=== PATIENT | female | born 1980 | race Two or more races ===

== ENCOUNTER → 2016-11-13 | Outpatient (CLI) | payer BC ==
[~2016-11-13] MED LIST: ALPR0.254; LEVO50TA7 PO
[2016-11-13 08:29] LABS: Cholesterol 199 mg/dL (<200); HDL Cholesterol 52 mg/dL (40-59); LDL Cholesterol 127 mg/dL (<100); Triglycerides 198 mg/dL (<150)
== END | disposition home or self-care (01) ==
LOC: LAB 07:06
PROVIDERS: ATTEND Internal Medicine
DX: I10 Essential (primary) hypertension (principal)
CPT/HCPCS: 36415; 80061; 84443

== ENCOUNTER → 2017-01-07 | Outpatient (CLI) | payer BC | END | disposition home or self-care (01) | LOC: LAB 08:42 | PROVIDERS: ATTEND Internal Medicine | DX: Z00.00 Encounter for general adult medical examination without abnormal findings (principal) | CPT/HCPCS: 36415; 84443 ==

== ENCOUNTER → 2017-04-13 | Outpatient (CLI) | payer BC | END | disposition home or self-care (01) | LOC: LAB 11:09 | PROVIDERS: ATTEND Internal Medicine | DX: E03.9 Hypothyroidism, unspecified (principal); E78.5 Hyperlipidemia, unspecified; K21.9 Gastro-esophageal reflux disease without esophagitis; F34.1 Dysthymic disorder | CPT/HCPCS: 36415; 84443 ==

== ENCOUNTER → 2017-06-17 | Outpatient (CLI) | payer BC | END | disposition home or self-care (01) | LOC: LAB 06:42 | PROVIDERS: ATTEND Internal Medicine | DX: I10 Essential (primary) hypertension (principal) | CPT/HCPCS: 36415; 84443 ==

== ENCOUNTER → 2017-09-17 | Outpatient (CLI) | payer BC | END | disposition home or self-care (01) | LOC: LAB 07:50 | PROVIDERS: ATTEND Internal Medicine | DX: R94.6 Abnormal results of thyroid function studies (principal) | CPT/HCPCS: 36415; 84443 ==

== ENCOUNTER → 2018-03-07 | Outpatient (CLI) | payer BC | END | disposition home or self-care (01) | LOC: LAB 14:14 | PROVIDERS: ATTEND Internal Medicine | DX: E03.9 Hypothyroidism, unspecified (principal); I12.9 Hypertensive chronic kidney disease with stage 1 through stage 4 chronic kidney disease, or unspecified chronic kidney disease; E11.22 Type 2 diabetes mellitus with diabetic chronic kidney disease; N18.2 Chronic kidney disease, stage 2 (mild); E78.5 Hyperlipidemia, unspecified; F41.9 Anxiety disorder, unspecified | CPT/HCPCS: 36415; 84443 ==

== ENCOUNTER → 2018-06-28 | Outpatient (CLI) | payer BC ==
[2018-06-28 08:21] LABS: Basophils # (auto) 0 uL; Basophils % (auto) 0.8 % (0.0-2.0); Eosinophils # (auto) 0.1 uL; Eosinophils % (auto) 1.7 % (0.0-7.0); Hematocrit 39.4 % (36.0-46.0); Hemoglobin 13.3 g/dL (12.2-16.2); Lymphocytes % (auto) 19.3 % (10.0-50.0); Mean Corpuscular Hemoglobin 31.3 pg (28.0-32.0); Mean Corpuscular Hgb Conc. 33.8 g/dL (32.0-36.0); Mean Corpuscular Volume 92.8 fL (80.0-100.0); Monocytes # (auto) 0.3 uL; Neutrophils # (auto) 3.7 uL; Neutrophils % (auto) 72.2 % (37.0-80.0); Nucleated Red Blood Cells % 0.1 %; Platelet Count (auto) 214 10^3/uL (140-450); Red Blood Cells 4.24 10^6/uL (4.0-5.20); Red Cell Distribution Width 14.9 % (11.8-14.3); White Blood Cell 5.1 10^3/uL (4.4-10.8)
[2018-06-28 08:41] LABS: Potassium 4.3 mmol/L (3.5-5.1)
[2018-06-28 08:50] LABS: Albumin 3.8 g/dL (3.4-5.0); BUN/Creatinine Ratio 21.7; Bilirubin, Total 0.6 mg/dL (0.2-1.0); Calcium 9.2 mg/dL (8.5-10.1); Total Protein 7.8 g/dL (6.4-8.2)
== END | disposition home or self-care (01) ==
LOC: LAB 07:32
PROVIDERS: ATTEND Internal Medicine
DX: K21.9 Gastro-esophageal reflux disease without esophagitis (principal); E03.9 Hypothyroidism, unspecified; E66.9 Obesity, unspecified
CPT/HCPCS: 36415; 80053; 80061; 82043; 83036; 84443; 85025

== ENCOUNTER → 2018-10-13 | Outpatient (CLI) | payer BC | END | disposition home or self-care (01) | LOC: LAB 08:25 | PROVIDERS: ATTEND Internal Medicine | DX: E03.9 Hypothyroidism, unspecified (principal) | CPT/HCPCS: 36415; 84443 ==

== ENCOUNTER → 2019-06-14 | Outpatient (CLI) | payer BC, OTHER | END | disposition home or self-care (01) | LOC: LAB 10:18 | PROVIDERS: ATTEND Internal Medicine | DX: E03.9 Hypothyroidism, unspecified (principal); K21.9 Gastro-esophageal reflux disease without esophagitis | CPT/HCPCS: 36415; 84443 ==

== ENCOUNTER → 2020-02-01 | Outpatient (CLI) | payer BC | END | disposition home or self-care (01) | LOC: LAB 09:38 | PROVIDERS: ATTEND Internal Medicine | DX: E03.9 Hypothyroidism, unspecified (principal) | CPT/HCPCS: 36415; 84443 ==

== ENCOUNTER → 2020-07-09 | Outpatient (CLI) | payer BC ==
[2020-07-09 08:42] LABS: Basophils # (auto) 0 10 ^3/uL (0-0.2); Basophils % (auto) 0.9 % (0.0-2.0); Eosinophils # (auto) 0.2 10 ^3/uL (0-0.8); Eosinophils % (auto) 3.7 % (0.0-7.0); Hematocrit 46.3 % (36.0-46.0); Hemoglobin 15.5 g/dL (12.2-16.2); Lymphocytes # (auto) 1.7 10 ^3/uL (0.4-5.4); Lymphocytes % (auto) 36.2 % (10.0-50.0); Mean Corpuscular Hgb Conc. 33.5 g/dL (32.0-36.0); Mean Corpuscular Volume 92.7 fL (80.0-100.0); Monocytes # (auto) 0.4 10 ^3/uL (0-1.3); Monocytes % (auto) 7.8 % (0.0-12.0); Neutrophils # (auto) 2.3 10 ^3/uL (1.6-8.6); Neutrophils % (auto) 51.4 % (37.0-80.0); Platelet Count (auto) 256 10^3/uL (140-450); Red Blood Cells 4.99 10^6/uL (4.0-5.20); Red Cell Distribution Width 13.2 % (11.8-14.3); White Blood Cell 4.6 10^3/uL (4.4-10.8)
[2020-07-09 09:07] LABS: Albumin 4.1 g/dL (3.4-5.0); Calcium 9.4 mg/dL (8.5-10.1); Potassium 4.1 mmol/L (3.5-5.1)
[2020-07-09 09:14] LABS: BUN/Creatinine Ratio 13.4; Bilirubin, Total 0.4 mg/dL (0.2-1.0); Total Protein 7.8 g/dL (6.4-8.2)
== END | disposition home or self-care (01) ==
LOC: LAB 08:05
PROVIDERS: ATTEND Internal Medicine
DX: E11.9 Type 2 diabetes mellitus without complications (principal); E03.9 Hypothyroidism, unspecified; E78.5 Hyperlipidemia, unspecified
CPT/HCPCS: 36415; 80053; 80061; 82043; 82306; 83036; 84443; 85025

== ENCOUNTER → 2020-10-11 | Outpatient (CLI) | payer BC | END | disposition home or self-care (01) | LOC: LAB 09:58 | PROVIDERS: ATTEND Internal Medicine | DX: E03.9 Hypothyroidism, unspecified (principal) | CPT/HCPCS: 36415; 84443 ==

== ENCOUNTER → 2021-02-06 | Outpatient (CLI) | payer BC | END | disposition home or self-care (01) | LOC: LAB 15:24 | PROVIDERS: ATTEND Internal Medicine | DX: E03.9 Hypothyroidism, unspecified (principal) | CPT/HCPCS: 36415; 84443 ==

== ENCOUNTER → 2021-09-22 | Outpatient (CLI) | payer BC | END | disposition home or self-care (01) | LOC: LAB 09:45 | PROVIDERS: ATTEND Internal Medicine | DX: E03.9 Hypothyroidism, unspecified (principal) | CPT/HCPCS: 36415; 84443 ==

== ENCOUNTER → 2022-06-24 | Outpatient (CLI) | payer BC ==
[2022-06-24 10:15] LABS: Basophils # (auto) 0 10 ^3/uL (0-0.2); Eosinophils # (auto) 0.1 10 ^3/uL (0-0.8); Hemoglobin 11.5 g/dL (12.2-16.2); Lymphocytes # (auto) 1.3 10 ^3/uL (0.4-5.4); Monocytes # (auto) 0.4 10 ^3/uL (0-1.3)
[2022-06-24 10:16] LABS: Eosinophils % (auto) 2.3 % (0.0-7.0); Lymphocytes % (auto) 32.7 % (10.0-50.0); Mean Corpuscular Hemoglobin 24.9 pg (28.0-32.0); Mean Corpuscular Hgb Conc. 31.9 g/dL (32.0-36.0); Mean Corpuscular Volume 78.1 fL (80.0-100.0); Monocytes % (auto) 10.1 % (0.0-12.0); Neutrophils # (auto) 2.1 10 ^3/uL (1.6-8.6); Neutrophils % (auto) 53.9 % (37.0-80.0); Nucleated Red Blood Cells % 0.1 %; Red Blood Cells 4.61 10^6/uL (4.0-5.20); Red Cell Distribution Width 17.8 % (11.8-14.3)
[2022-06-24 10:44] LABS: Albumin 3.5 g/dL (3.4-5.0); Calcium 8.7 mg/dL (8.5-10.1); Potassium 4.6 mmol/L (3.5-5.1)
[2022-06-24 10:48] LABS: BUN/Creatinine Ratio 25.6; Bilirubin, Total 0.5 mg/dL (0.2-1.0); Total Protein 6.9 g/dL (6.4-8.2)
== END | disposition home or self-care (01) ==
LOC: LAB 09:48
PROVIDERS: ATTEND Internal Medicine
DX: E78.5 Hyperlipidemia, unspecified (principal); E03.9 Hypothyroidism, unspecified
CPT/HCPCS: 36415; 80053; 80061; 82728; 84443; 85025

== ENCOUNTER → 2023-01-01 | Outpatient (CLI) | payer BC | END | disposition home or self-care (01) | LOC: LAB 13:48 | PROVIDERS: ATTEND Family Medicine | DX: D22.9 Melanocytic nevi, unspecified (principal) | CPT/HCPCS: 88302 ==

== ENCOUNTER → 2023-01-06 | Outpatient (CLI) | payer BC ==
[2023-01-06 09:56] LABS: Basophils # (auto) 0 10 ^3/uL (0-0.2); Basophils % (auto) 0.8 % (0.0-2.0); Eosinophils # (auto) 0.1 10 ^3/uL (0-0.8); Eosinophils % (auto) 2.2 % (0.0-7.0); Hematocrit 39.7 % (36.0-46.0); Hemoglobin 13.2 g/dL (12.2-16.2); Lymphocytes # (auto) 1.2 10 ^3/uL (0.4-5.4); Lymphocytes % (auto) 27.2 % (10.0-50.0); Mean Corpuscular Hemoglobin 27.6 pg (28.0-32.0); Mean Corpuscular Hgb Conc. 33.3 g/dL (32.0-36.0); Mean Corpuscular Volume 82.9 fL (80.0-100.0); Monocytes # (auto) 0.4 10 ^3/uL (0-1.3); Monocytes % (auto) 9.8 % (0.0-12.0); Neutrophils # (auto) 2.6 10 ^3/uL (1.6-8.6); Nucleated Red Blood Cells % 0.2 %; Red Blood Cells 4.79 10^6/uL (4.0-5.20); Red Cell Distribution Width 15.4 % (11.8-14.3); White Blood Cell 4.4 10^3/uL (4.4-10.8)
[2023-01-06 10:58] LABS: Potassium 4.1 mmol/L (3.5-5.1)
[2023-01-06 11:30] LABS: Albumin 3.8 g/dL (3.4-5.0); BUN/Creatinine Ratio 19.8 (10.0-20.0); Bilirubin, Total 0.4 mg/dL (0.2-1.0); Calcium 9.2 mg/dL (8.5-10.1); Total Protein 7.4 g/dL (6.4-8.2)
== END | disposition home or self-care (01) ==
LOC: LAB 09:27
PROVIDERS: ATTEND Internal Medicine
DX: E03.9 Hypothyroidism, unspecified (principal); E55.9 Vitamin D deficiency, unspecified
CPT/HCPCS: 36415; 80053; 80061; 82306; 84443; 85025

== ENCOUNTER → 2023-11-01 | Outpatient (CLI) | payer BC | END | disposition home or self-care (01) | LOC: LAB 07:34 | PROVIDERS: ATTEND Internal Medicine | DX: E03.9 Hypothyroidism, unspecified (principal) | CPT/HCPCS: 36415; 84439; 84443 ==

== ENCOUNTER → 2024-01-10 | Outpatient (CLI) | payer BC ==
[2024-01-10 09:02] LABS: LDL Cholesterol 206 mg/dL (< 100); Triglycerides 103 mg/dL (< 150)
[2024-01-10 09:03] LABS: Cholesterol 285 mg/dL (< 200)
[2024-01-10 09:04] LABS: HDL Cholesterol 69 mg/dL (40-59)
[2024-01-10 13:41] LABS: Free T3 1.55 pg/mL (2.3-4.2)
[2024-01-10 13:44] LABS: Free T4 (Free Thyroxine) 0.37 ng/dL (0.89-1.76)
== END | disposition home or self-care (01) ==
LOC: LAB 08:09
PROVIDERS: ATTEND Internal Medicine
DX: E03.9 Hypothyroidism, unspecified (principal); E78.00 Pure hypercholesterolemia, unspecified
CPT/HCPCS: 36415; 80061; 84439; 84443; 84481

== ENCOUNTER → 2024-03-01 | Outpatient (CLI) | payer BC ==
[2024-03-01 11:45] LABS: Free T3 3.68 pg/mL (2.3-4.2)
[2024-03-01 11:46] LABS: Free T4 (Free Thyroxine) 1.79 ng/dL (0.89-1.76)
== END | disposition home or self-care (01) ==
LOC: LAB 09:57
PROVIDERS: ATTEND Internal Medicine
DX: E03.9 Hypothyroidism, unspecified (principal)
CPT/HCPCS: 36415; 84439; 84443; 84481

== ENCOUNTER → 2024-06-26 | Outpatient (CLI) | payer BC ==
[2024-06-26 09:38] LABS: Urine Bacteria None Seen /hpf (None Seen)
[2024-06-26 09:50] LABS: Urine Blood Negative /uL (Negative); Urine Clarity Clear (Clear); Urine Color Light-Yellow (Yellow); Urine Protein, UAD Negative (Negative); Urine Specific Gravity 1.021 (1.001-1.035); Urine Urobilinogen Normal (Negative); Urine WBC 1 /hpf (0 - 5); Urine pH 5.5 (5.0-9.0)
[2024-06-26 09:57] LABS: Alanine Aminotransferase 21 U/L (7-40); Albumin 4.4 g/dL (3.2-4.8); Alkaline Phosphatase 99 U/L (46-116); Anion Gap 4 (5-15); Aspartate Aminotransferase 15 U/L (13-40); Blood Urea Nitrogen 12 mg/dL (9-23); Calcium 9.9 mg/dL (8.7-10.4); Carbon Dioxide 25 mmol/L (20-31); Chloride 108 mmol/L (98-107); Glucose 105 mg/dL (74-106); LDL Cholesterol 158 mg/dL (< 100); Potassium 4.6 mmol/L (3.5-5.1); Sodium 137 mmol/L (136-145); Triglycerides 164 mg/dL (< 150)
[2024-06-26 09:58] LABS: Bilirubin, Total 0.3 mg/dL (0.2-1.0); Cholesterol 228 mg/dL (< 200); HDL Cholesterol 60 mg/dL (40-59); Total Protein 7.1 g/dL (5.7-8.2)
[2024-06-26 10:03] LABS: Basophils # (auto) 0.1 10 ^3/uL (0-0.2); Basophils % (auto) 1.1 % (0.0-2.0); Eosinophils # (auto) 0.1 10 ^3/uL (0-0.8); Eosinophils % (auto) 2.7 % (0.0-7.0); Hematocrit 41.4 % (36.0-46.0); Hemoglobin 14.1 g/dL (12.2-16.2); Lymphocytes # (auto) 1.2 10 ^3/uL (0.4-5.4); Lymphocytes % (auto) 25.9 % (10.0-50.0); Mean Corpuscular Hemoglobin 30.6 pg (28.0-32.0); Monocytes # (auto) 0.4 10 ^3/uL (0-1.3); Monocytes % (auto) 9.8 % (0.0-12.0); Neutrophils # (auto) 2.8 10 ^3/uL (1.6-8.6); Neutrophils % (auto) 60.5 % (37.0-80.0); Platelet Count (auto) 227 10^3/uL (140-450); Red Cell Distribution Width 15.9 % (11.8-14.3); White Blood Cell 4.6 10^3/uL (4.4-10.8)
[2024-06-26 11:10] LABS: Free T4 (Free Thyroxine) 1.38 ng/dL (0.89-1.76); T3 Total 0.77 ng/mL (0.60-1.81)
== END | disposition home or self-care (01) ==
LOC: LAB 09:22
PROVIDERS: ATTEND Internal Medicine
DX: Z12.11 Encounter for screening for malignant neoplasm of colon (principal); Z13.6 Encounter for screening for cardiovascular disorders; E03.9 Hypothyroidism, unspecified
CPT/HCPCS: 36415; 80053; 80061; 81001; 82306; 82607; 83036; 84439; 84443; 84480; 85025

== ENCOUNTER → 2024-06-27 | Outpatient (CLI) | payer BC | END | disposition home or self-care (01) | LOC: XYW 09:07 | PROVIDERS: ATTEND Internal Medicine | DX: I51.89 Other ill-defined heart diseases (principal); R01.1 Cardiac murmur, unspecified | CPT/HCPCS: 93306 ==

== ENCOUNTER → 2024-09-08 | Day surgery (SDC) | payer BC ==
[2024-09-04 09:17] LABS: Basophils # (auto) 0 10 ^3/uL (0-0.2); Basophils % (auto) 1.2 % (0.0-2.0); Eosinophils # (auto) 0.1 10 ^3/uL (0-0.8); Hematocrit 43.2 % (36.0-46.0); Hemoglobin 14.4 g/dL (12.2-16.2); Lymphocytes # (auto) 1.2 10 ^3/uL (0.4-5.4); Lymphocytes % (auto) 28.5 % (10.0-50.0); Mean Corpuscular Hemoglobin 29.9 pg (28.0-32.0); Mean Corpuscular Hgb Conc. 33.4 g/dL (32.0-36.0); Mean Corpuscular Volume 89.6 fL (80.0-100.0); Monocytes # (auto) 0.4 10 ^3/uL (0-1.3); Monocytes % (auto) 8.6 % (0.0-12.0); Neutrophils # (auto) 2.4 10 ^3/uL (1.6-8.6); Neutrophils % (auto) 59.7 % (37.0-80.0); Nucleated Red Blood Cells % 0.1 %; Platelet Count (auto) 231 10^3/uL (140-450); Red Blood Cells 4.82 10^6/uL (4.0-5.20); Red Cell Distribution Width 14.2 % (11.8-14.3); White Blood Cell 4.1 10^3/uL (4.4-10.8)
[2024-09-04 09:19] LABS: Urine Bacteria FEW /hpf (None Seen); Urine Blood Negative /uL (Negative); Urine Clarity Clear (Clear); Urine Color Light-Yellow (Yellow); Urine Protein, UAD Negative (Negative); Urine Specific Gravity 1.025 (1.001-1.035); Urine Squamous Epithelial Cell FEW /hpf (<5); Urine Urobilinogen Normal (Negative); Urine WBC <1 /hpf (0 - 5)
[2024-09-04 09:26] LABS: INR 1.02 (0.9-1.15); Partial Thromboplastin Time 27.9 SEC (24.5-34.5); Prothrombin Time 10.8 sec (9.3-11.8)
[2024-09-04 09:42] LABS: Alanine Aminotransferase 16 U/L (7-40); Albumin 4.3 g/dL (3.2-4.8); Alkaline Phosphatase 101 U/L (46-116); Anion Gap 6 (5-15); Aspartate Aminotransferase 14 U/L (13-40); BUN/Creatinine Ratio 13.5 (10.0-20.0); Blood Urea Nitrogen 13 mg/dL (9-23); Calcium 10.3 mg/dL (8.7-10.4); Carbon Dioxide 25 mmol/L (20-31); Potassium 4.8 mmol/L (3.5-5.1); Sodium 140 mmol/L (136-145)
[2024-09-04 09:43] LABS: Bilirubin, Total 0.4 mg/dL (0.2-1.0)
[2024-09-04 09:47] LABS: Chloride 109 mmol/L (98-107); Glucose 113 mg/dL (74-106)
[~2024-09-08] VITALS: Ht 165.1 cm; Wt 77.1 kg
[~2024-09-08] MED LIST changes: -ALPR0.254; +LABETALOL HCL 5 MG/ML ML 20ML VIAL IV ONE; +LEVO150C3 PO; -LEVO50TA7 PO; +LIDOCAINE 1% INJ PF 5ML AMP ONE; +PROPOFOL 10 MG/ML 20 ML IV ONE
[2024-09-08 11:17] VITALS: PULSE 94; RESP 18; TEMP 98.2; O2SAT 100
--- NOTE | 2024-09-08 11:30 | DVHOP2 ---
Operative Report DATE OF OPERATION: 09/08/24 PROCEDURE: Diagnostic Colonoscopy. PREOPERATIVE INDICATION: The patient is a 44 -year-old female undergoing colonoscopy for colon cancer screening POSTOPERATIVE DIAGNOSES: 1. Trace internal external hemorrhoids 2. Otherwise completely normal colonoscopy examination up to the cecum and terminal ileum PROCEDURE PERFORMED BY: Lynne García M.D. SCOPE: Olympus videocolonoscope. ASA CLASS: 2 PREOPERATIVE MEDICATIONS: Mac sedation [employer] Julius PROCEDURE IN DETAIL: After obtaining an informed consent, the patient was placed on left lateral decubitus position. She was then sedated with the above medications. A rectal examination was performed that was normal. The colonoscope was then passed through the anus into the rectosigmoid and through the descending, transverse, and ascending colon up to the cecum with visualization of the appendiceal orifice, base of the cecum and the ileocecal valve. The colonoscope was then withdrawn. The distal 5-10 cm of the terminal ileum were normal No polyps or masses were seen. There was no colitis. The colonoscopy was essentially normal There was no clear-cut diverticular disease. Patient had a good bowel prep On retroflexion and straight on view she had trace internal external hemorrhoids The patient tolerated the procedure well without difficulty. WITHDRAWAL TIME: 6 minute QUALITY OF THE PREP: [place] Bowel Prep score: 9. COMPLICATIONS : None SPECIMENS: None DISPOSITION: Stable D/C to home PLAN: 1. Repeat colonoscopy in 10 years 2. Resume GI soft diet advance as tolerated 3. Local anorectal hemorrhoidal care 4. Outpatient follow up with me in 4-6 weeks to review results and discuss further management LYNNE GARCÍA MD Sep 08, 2024 11:30
[2024-09-08 11:55] VITALS: BP 138/88; PULSE 101; RESP 20; O2SAT 98
== END | disposition home or self-care (01) ==
LOC: GI 08:43 → EEVIPCON 11:15
PROVIDERS: ATTEND Internal Medicine Gastroenterology
DX: Z12.11 Encounter for screening for malignant neoplasm of colon (principal); E03.9 Hypothyroidism, unspecified; Z79.890 Hormone replacement therapy; Z98.891 History of uterine scar from previous surgery; Z88.8 Allergy status to other drugs, medicaments and biological substances
CPT/HCPCS: 36415; 45378; 80053; 81001; 81025; 85025; 85610; 85730; J2704; J7030

== ENCOUNTER 2025-05-29 10:25 | Outpatient (CLI) | payer BC ==
[~2025-05-29 10:25] MED LIST changes: -LABETALOL HCL 5 MG/ML ML 20ML VIAL IV ONE; -LIDOCAINE 1% INJ PF 5ML AMP ONE; -PROPOFOL 10 MG/ML 20 ML IV ONE
[2025-05-29 10:42] LABS: Hematocrit 40.2 % (36.0-46.0); Hemoglobin 13.6 g/dL (12.2-16.2); Mean Corpuscular Hemoglobin 29.2 pg (28.0-32.0); Mean Corpuscular Volume 86.5 fL (80.0-100.0); Nucleated Red Blood Cells % 0.0 %
[2025-05-29 11:34] LABS: Alanine Aminotransferase 16 U/L (7-40); Albumin 4.2 g/dL (3.2-4.8); Anion Gap 8 (5-15); BUN/Creatinine Ratio 13.0 (10.0-20.0); Bilirubin, Total 0.3 mg/dL (0.2-1.0); Blood Urea Nitrogen 12 mg/dL (9-23); Calcium 9.4 mg/dL (8.7-10.4); Carbon Dioxide 23 mmol/L (20-31); HDL Cholesterol 52 mg/dL (40-59); Total Protein 7.0 g/dL (5.7-8.2); Triglycerides 98 mg/dL (< 150)
[2025-05-29 11:36] LABS: Alkaline Phosphatase 81 U/L (46-116); Chloride 108 mmol/L (98-107); Cholesterol 201 mg/dL (< 200); Glucose 105 mg/dL (74-106); Potassium 4.2 mmol/L (3.5-5.1); Sodium 139 mmol/L (136-145); Urine Protein, UAD Negative (Negative)
== END 2025-05-29 17:00 | disposition home or self-care (01) ==
LOC: LAB 10:25
PROVIDERS: ATTEND Internal Medicine
DX: I12.9 Hypertensive chronic kidney disease with stage 1 through stage 4 chronic kidney disease, or unspecified chronic kidney disease (principal); N18.2 Chronic kidney disease, stage 2 (mild); E03.9 Hypothyroidism, unspecified; E78.00 Pure hypercholesterolemia, unspecified; Z00.01 Encounter for general adult medical examination with abnormal findings; Z13.1 Encounter for screening for diabetes mellitus
CPT/HCPCS: 36415; 80053; 80061; 81001; 83036; 84439; 84443; 85025